=== PATIENT | female | born 1940 | race Caucasian/White ===

== ENCOUNTER → 2016-06-10 | Outpatient (CLI) | payer MEDICARE, OTHER ==
[~2016-06-10] MED LIST: ACTIGAL; ACTIGALL 300MG300 MG; ALLOPURINOL100 MG PO; AMITRIPTYLINE H10 MG; AMITRIPTYLINE100 MG PO; ATARAX25 MG PO; BENEMID500 MG PO; BENTYL10 MG PO; CEPHALEXIN500 M1 PO; COLESTID 1GM1 G PO; ELMIRON100 MG PO; FIORICET 325 MG1 TAB; FIORICET W/CODE1 CA1 PO; GASTROCROM; GASTROCROM PO; GASTROCROM100 MG/5 M PO; HCTZ 25MG25 MG PO; HYDROCODONE/APAP; HYDROCODONE/APAP PO; INDERAL PO; INDERAL40 MG PO; KETOTIFEN FUMARA5 ML; LASIX 20MG TABL20 MG PO; LEXAPRO20 MG PO; LORTAB 10/500 51 TAB PO; LYRICA50 MG PO; MVI; NORCO 325 MG-7.1 TAB PO; OPIUM; PRILOSEC 20MG20 MG PO; PRIMADONE; PROBENECID; PROBIOTIC; PROPRANOLOL HCL40 MG PO; RANITIDINE HYD150 MG PO; REGLAN 10MG10 MG/TAB PO; REQUIP2 MG PO; REQUIP4 MG PO; SAVELLA25 MG PO; SINGULAIR10 MG PO; SYNTHROID0.075 MG PO; TRAZODO50 MG PO; TRAZODONE HCL50 MG PO; UNABLE; UNITHROID; URSO250 MG PO; URSODIOL300 MG PO; VALTREX PO; VITAMIN D5000 IU PO; XYZAL5 MG PO; ZADITOR 5 ML5 ML OP; ZONEGRAN100 MG PO; ZONISAMIDE; ZYRTEC 10MG
== END ==
LOC: BHSO 15:21
DX: F33.41 Major depressive disorder, recurrent, in partial remission (principal)

== ENCOUNTER → 2016-06-21 | Outpatient (CLI) | payer MEDICARE, OTHER | LOC: MC.RAD 05-21 10:40 | DX: Z12.31 Encounter for screening mammogram for malignant neoplasm of breast (principal); D24.2 Benign neoplasm of left breast; D24.1 Benign neoplasm of right breast ==

== ENCOUNTER → 2016-10-16 | Outpatient (CLI) | payer MEDICARE, OTHER | LOC: BHSO 13:15 | DX: F31.73 Bipolar disorder, in partial remission, most recent episode manic (principal) ==